=== PATIENT | male | born 1960 | race Caucasian/White ===

== ENCOUNTER 2021-09-05 20:26 | Inpatient (IN) ==
[2021-09-05 21:00] LABS: Basophils % 0.3 % (0.0-0.8); Eosinophils # 0.1 10*3/uL (0.0-0.87); Eosinophils % 0.9 % (0.00-10.9); Hematocrit 47.2 VOL% (42.0-52.0); Hemoglobin 16.3 GM/DL (14.0-18.0); Immature Granulocytes % 0.7 %; Lymphocytes # 4.8 10*3/uL (1.4-4.0); Lymphocytes % 31.3 % (21.2-54.2); Mean Corpuscular HGB Conc 34.5 GM/DL (32-36); Mean Corpuscular Volume 89.2 FL (87-102); Monocytes % 7.7 % (1.7-12.7); Neutrophils % 59.1 % (38.7-73.9); Platelet Count 273 T/CUMM (130-400); Red Blood Count 5.29 MC/CUMM (3.8-5.5); Red Cell Distribution Width 11.9 % (9.3-17.3); White Blood Count 15.2 T/CUMM (4-12)
[2021-09-05 21:13] LABS: Alanine Aminotransferase 50 U/L (16-61); Albumin 3.6 G/DL (3.4-5.0); Alkaline Phosphatase 149 U/L (45-117); Aspartate Amino Transferase 36 U/L (0-37); Blood Urea Nitrogen 8 MG/DL (7-18); Calcium 8.5 MG/DL (8.5-10.1); Carbon Dioxide 28 MMOL/L (21-32); Estimated Glom Filtration Rate 125 ML/MIN; Glucose 102 MG/DL (74-106); Osmolality,Calculated 278.3 MOS/KG (273-304); Potassium 3.5 MMOL/L (3.5-5.1); Sodium 141 MMOL/L (136-145); Total Protein 8.2 G/DL (6.4-8.2)
[2021-09-05 21:48] LABS: Mucus,Urine Occasional /LPF (Occasional); RBC,Urine <1 /HPF (0-4); Squamous Epithelial Cell,Urine Occasional /HPF (0-10)
[2021-09-05 21:52] LABS: Bilirubin,Urine Negative (Negative); Blood, Urine Negative (Negative); Glucose,Urine (UA) Negative (Negative); Ketones,Urine Negative (Negative); Nitrite,Urine Negative (Negative); Protein,Urine Trace MG/DL; Urine Appearance Clear (Clear); Urine Color Yellow (Yellow); Urine Specific Gravity 1.025 (1.001-1.035); Urine pH 6.5 (4.5-8.0)
[2021-09-05 22:10] LABS: Barbiturates Screen,Urine Negative (Negative); Benzodiazepines Screen,Urine Negative (Negative); Cannabinoid Screen,Urine Negative (Negative); Opiate Screen,Urine Negative (Negative); Phencyclidine Screen,Urine Negative (Negative)
[2021-09-06] MEDS ORDERED: DEXTROSE 10% 250 ML BAG IV PRN (00:03)
[2021-09-06] MEDS ORDERED: BISACODYL 5 MG TABLET PO PRN (00:03)
[2021-09-06] MEDS ORDERED: ZALEPLON 5 MG CAPSULE PO PRN (00:03)
[2021-09-06] MEDS ORDERED: NICOTINE 21 MG/24 HR PATCH TRANSDERM PRN (00:03)
[2021-09-06] MEDS ORDERED: diphenhydrAMINE CAP 25 MG CAPSULE PO PRN (00:03)
[2021-09-06] MEDS ORDERED: guaiFENesin/DM ER 600-30 MG TABLET PO PRN (00:03)
[2021-09-06] MEDS ORDERED: ACETAMINOPHEN 325 MG TABLET PO PRN (00:03)
[2021-09-06] MEDS ORDERED: GLUCAGON 1 MG VIAL IM PRN (00:03)
[2021-09-06] MEDS ORDERED: ONDANSETRON 4 MG/2 ML VIAL IV PRN (00:03)
[2021-09-06] MEDS ORDERED: hydrALAZINE 20 MG/1 ML VIAL IV PRN (00:03)
[2021-09-06] MEDS ORDERED: ALBUTEROL/IPRATROPIUM 3 ML NEB RESP TX PRN (00:03)
[2021-09-06] MEDS ORDERED: amLODIPine 5 MG TABLET PO STA (00:05)
[2021-09-06] MEDS: SODIUM CHLORIDE 0.9% 1,000 ML IV SCH ×2 (00:45→23:05)
[2021-09-06] MEDS ORDERED: levETIRAcetam 500 MG/5 ML VIAL IV ONE (00:56)
[2021-09-06 04:35] LABS: Basophils % 0.2 % (0.0-0.8); Eosinophils % 0.2 % (0.00-10.9); Hematocrit 44.6 VOL% (42.0-52.0); Hemoglobin 15.2 GM/DL (14.0-18.0); Immature Granulocytes % 0.6 %; Immature Granulocytes Absolute 0.08 #; Lymphocytes # 2.3 10*3/uL (1.4-4.0); Lymphocytes % 16.6 % (21.2-54.2); Mean Corpuscular HGB Conc 34.1 GM/DL (32-36); Mean Platelet Volume 10.1 FL (9.6-12.0); Monocytes % 5.7 % (1.7-12.7); Neutrophils % 76.7 % (38.7-73.9); Platelet Count 194 T/CUMM (130-400); Red Blood Count 5.01 MC/CUMM (3.8-5.5); White Blood Count 13.8 T/CUMM (4-12)
[2021-09-06 04:54] LABS: Calcium 8.6 MG/DL (8.5-10.1); Osmolality,Calculated 276.5 MOS/KG (273-304); Potassium 3.6 MMOL/L (3.5-5.1)
[2021-09-06 05:01] LABS: Hypochromia Slight
[2021-09-06 05:02] LABS: Microcytosis Slight; Platelet Estimate Adequate
[2021-09-06] MEDS: amLODIPine 10 MG TABLET PO SCH (09:00)
[2021-09-06] MEDS: HEPARIN 5,000 UNIT/1 ML VIAL SUBCUT SCH ×2 (09:00→21:06)
[2021-09-06] MEDS: PANTOPRAZOLE 40 MG TABLET PO SCH (09:00)
[2021-09-06] MEDS ORDERED: MAGNESIUM SULF RIDER 2 GM/50 ML PREMIX IV ONE (10:00)
[2021-09-06] MEDS ORDERED: PHENYTOIN ER 100 MG CAPSULE PO SCH (19:00)
[2021-09-06] MEDS: PHENYTOIN 100 MG/2 ML VIAL IV SCH ×2 (21:08→23:05)
[2021-09-07 05:34] LABS: Basophils % 0.3 % (0.0-0.8); Eosinophils # 0.1 10*3/uL (0.0-0.87); Eosinophils % 0.5 % (0.00-10.9); Hematocrit 45.6 VOL% (42.0-52.0); Hemoglobin 15.4 GM/DL (14.0-18.0); Immature Granulocytes % 0.3 %; Immature Granulocytes Absolute 0.04 #; Lymphocytes # 3.3 10*3/uL (1.4-4.0); Lymphocytes % 28.8 % (21.2-54.2); Mean Corpuscular HGB Conc 33.8 GM/DL (32-36); Mean Corpuscular Volume 90.5 FL (87-102); Mean Platelet Volume 10.1 FL (9.6-12.0); Neutrophils % 60.1 % (38.7-73.9); Platelet Count 233 T/CUMM (130-400); Red Blood Count 5.04 MC/CUMM (3.8-5.5); White Blood Count 11.5 T/CUMM (4-12)
[2021-09-07 05:45] LABS: Calcium 9.1 MG/DL (8.5-10.1); Osmolality,Calculated 273.7 MOS/KG (273-304); Potassium 3.7 MMOL/L (3.5-5.1)
[2021-09-07] MEDS: PHENYTOIN 100 MG/2 ML VIAL IV SCH ×3 (06:06→22:06)
[2021-09-07] MEDS: HEPARIN 5,000 UNIT/1 ML VIAL SUBCUT SCH ×2 (10:24→21:41)
[2021-09-07] MEDS: amLODIPine 10 MG TABLET PO SCH (10:24)
[2021-09-07] MEDS: PANTOPRAZOLE 40 MG TABLET PO SCH (10:28)
[2021-09-07] MEDS: SODIUM CHLORIDE 0.9% 1,000 ML IV SCH (10:33)
[2021-09-08 05:31] LABS: Basophils % 0.3 % (0.0-0.8); Eosinophils # 0.2 10*3/uL (0.0-0.87); Eosinophils % 1.8 % (0.00-10.9); Hematocrit 45.1 VOL% (42.0-52.0); Hemoglobin 15.1 GM/DL (14.0-18.0); Immature Granulocytes % 0.6 %; Immature Granulocytes Absolute 0.06 #; Lymphocytes # 3.1 10*3/uL (1.4-4.0); Lymphocytes % 31.4 % (21.2-54.2); Mean Corpuscular HGB Conc 33.5 GM/DL (32-36); Mean Platelet Volume 9.8 FL (9.6-12.0); Monocytes % 9.9 % (1.7-12.7); Platelet Count 207 T/CUMM (130-400); Red Blood Count 5.01 MC/CUMM (3.8-5.5); White Blood Count 9.8 T/CUMM (4-12)
[2021-09-08 05:55] LABS: Calcium 8.6 MG/DL (8.5-10.1); Osmolality,Calculated 280.3 MOS/KG (273-304); Potassium 3.6 MMOL/L (3.5-5.1)
[2021-09-08] MEDS: SODIUM CHLORIDE 0.9% 1,000 ML IV SCH (06:00)
[2021-09-08] MEDS: PHENYTOIN 100 MG/2 ML VIAL IV SCH (06:00)
[2021-09-08] MEDS: HEPARIN 5,000 UNIT/1 ML VIAL SUBCUT SCH (11:03)
[2021-09-08] MEDS: amLODIPine 10 MG TABLET PO SCH (11:04)
[2021-09-08] MEDS: PANTOPRAZOLE 40 MG TABLET PO SCH (11:05)
[2021-09-08 11:47] VITALS: BP 154/85
== END 2021-09-08 15:50 | disposition home or self-care (01) | DRG 101 ==
LOC: EDUNIT# → EDBD → N.EDINP 20:26 → N.ED 20:26 → N.5E 09-06 16:48 → SUATTDRO 09-07 10:43
PROVIDERS: ADMIT Internal Medicine; ATTEND Internal Medicine